=== PATIENT | male | born 1995 | race African-American/Black ===

== ENCOUNTER 2017-06-23 02:38 | Emergency (ER) | payer OTHER ==
[~2017-06-23] VITALS: Ht 177.8 cm; Wt 67.0 kg
[2017-06-23 02:40] VITALS: TEMP 37.3; Ht 177.8 cm; Wt 67.0 kg
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
[2017-06-23 05:55] VITALS: BP 120/61; PULSE 90; O2SAT 99
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
== END 2017-06-23 06:00 | disposition home or self-care (01) ==
LOC: EDBD 02:38 → C.EDB 02:39
DX: S00.93XA Contusion of unspecified part of head, initial encounter (principal); S16.1XXA Strain of muscle, fascia and tendon at neck level, initial encounter; Y04.0XXA Assault by unarmed brawl or fight, initial encounter